=== PATIENT | female | born 1930 | race Caucasian/White ===

== ENCOUNTER 2017-07-02 13:32 | Emergency (ER) | payer OTHER ==
[~2017-07-02] VITALS: Ht 170.2 cm; Wt 55.0 kg
[~2017-07-02 13:32] MED LIST: ASPI81TA28 PO; CYAN100048 PO; DICY10CA12 PO; GARL400T4 PO; MULT-506 PO; NITR0.4S UT; PSYL0.524 PO; TPRSR/25 PO; TPRSR/50 PO; VALS320T PO
--- NOTE | 2017-07-02 16:02 | EMERGENCY ROOM VISIT NOTE ---
History Report prepared by Roxane: Glenroy Lang Under the Supervision of: Dr. Mandeep North M.D. First contact with patient: 15:56 Chief Complaint: HYPERTENSION Stated Complaint: HIGH BP, HEART PALPATATIONS, SENT BY DR MONTEJO History of Present Illness The patient is an 86 year old white female with a past medical history of AFIB, hypertension, and a pacemaker placement in October, who presents to the ED with a cc of worsening hypertension beginning a couple days ago. Positive heart racing , intermittent left sided neck and head "stinging". 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 The patient says that her blood pressure has been as high as in the 160s systolic, and was referred here by Dr. Montejo. She takes blood pressure medication, and has not had any changes to her medications recently. The patient does take Coumadin. She says that she had an artery study "a while ago". Source of History: patient, family Onset: A couple days ago Position: other (global - HTN) Symptom Intensity: 160s systolic Quality: other (hx of HTN) Timing: worsening Note: Associated symptoms: Heart racing, intermittent left sided neck and head "stinging". Review of Systems See HPI for pertinent positives and negatives. A total of ten systems were reviewed and were otherwise negative. Past Medical & Surgical Medical Problems: (1) Afib (2) HTN (hypertension) (3) Pacemaker Family History Family history omitted secondary to patient's advanced age. Social History Smoking Status: Never Smoker Drug Use: none Housing Status: lives with family Occupation Status: retired Current/Historical Medications Scheduled Cholecalciferol (Vitamin D 1000 Unit), 1,000 INTER.UNIT PO DAILY Fluticasone Propionate (Nasal) (Flonase Allergy Relief), 2 SPRAYS JOSE DAILY Metoprolol Succinate (Toprol Xl), 50 MG PO BID Multivitamin (Multivitamin), 1 TAB PO Q2D Nitroglycerin (Nitrostat), 0.4 MG UT PRN Psyllium (Metamucil), 1 DOSE PO HS Valsartan (Diovan), 80 MG PO DAILY Vitamin B Cmplx/Vitc/Folic Ac (Nephrocaps), 1 CAP PO DAILY Warfarin Sod (Jantoven), 3 MG PO 5XWK Warfarin Sodium (Warfarin Sodium), 2 MG PO MON&FRI Scheduled PRN Acetaminophen (Tylenol), 1,000 MG PO Q6 PRN for Pain or Fever Dicyclomine Hcl (Dicyclomine Hcl), 10 MG PO TID PRN for PRN Allergies Coded Allergies: Oxycodone (Verified Allergy, Severe, "RASH AND PEELING", 11/20/14) Alendronate (Verified Allergy, Mild, VOMITING, 11/20/14) Amantadine (Unverified Allergy, Unknown, N/V BROUT OUT IN BLISTERS, ) Benzonatate (Verified Allergy, Unknown, UNKNOWN, 11/20/14) Guaifenesin (Unverified Allergy, Unknown, RASH, 10/31/14) Morphine (Verified Allergy, Unknown, PATIENT UNSURE, 11/20/14) Nitrofurantoin (Unverified Allergy, Unknown, RASH, 10/31/14) Ondansetron (Verified Allergy, Unknown, RASH, 07/02/17) Sulfa Drugs (Unverified Allergy, Unknown, 10/31/14) Physical Exam Vital Signs Date Time Temp Pulse Resp B/P (MAP) Pulse Ox O2 Delivery O2 Flow Rate FiO2 07/02/17 19:17 36.5 65 18 154/69 95 07/02/17 18:32 65 18 07/02/17 18:31 172/71 07/02/17 18:02 64 07/02/17 18:02 60 28 07/02/17 17:57 60 22 07/02/17 17:51 157/77 07/02/17 13:38 36.5 63 18 168/72 95 Room Air Physical Exam GENERAL: Awake, alert, well-appearing, NAD HENT: Normocephalic, atraumatic. No reproducible discomfort with lateral motion of neck. EYES: Normal conjunctiva. Sclera non-icteric. NECK: Supple. No nuchal rigidity. FROM. No bruits heard over anterior neck. RESPIRATORY: CTAB, no rhonchi, wheezing, crackles CARDIAC: RRR, no MRG ABDOMEN: Soft, NTND, BS+ MSK: No chest wall TTP, no LE edema NEURO: CN 2-12 intact, 5/5 upper and lower extremity strength, no dysmetria, no drift, good finger to nose, no sensory deficits. SKIN: No rash or jaundice noted. Medical Decision & Procedures ER Provider Diagnostic Interpretation: X-ray: Per my interpretation, radiologist review. CHEST ONE VIEW PORTABLE HISTORY: Generalized abdominal pain. COMPARISON: None. FINDINGS: Left-sided single lead pacemaker. No focal lung consolidations to suggest pneumonia. No evidence for pulmonary edema. The heart is mildly enlarged. No pleural effusions. No pneumothorax. Mildly tortuous and partially calcified thoracic aorta. IMPRESSION: Mild cardiomegaly. Otherwise, no acute process within the chest. Electronically signed by: Manuelito Velazquez M.D. 07/02/2017 5:07 PM Dictated Date/Time: 07/02/2017 5:06 PM Laboratory Results 07/02/17 16:40 Red Blood Count 5.12, Mean Corpuscular Volume 92.0, Mean Corpuscular Hemoglobin 31.4, Mean Corpuscular Hemoglobin Concent 34.2, Mean Platelet Volume 10.7, Neutrophils (%) (Auto) 66.9, Lymphocytes (%) (Auto) 19.1, Monocytes (%) (Auto) 11.9, Eosinophils (%) (Auto) 1.2, Basophils (%) (Auto) 0.6, Neutrophils # (Auto ) 4.82, Lymphocytes # (Auto) 1.38, Monocytes # (Auto) 0.86, Eosinophils # (Auto ) 0.09, Basophils # (Auto) 0.04 07/02/17 16:40 Test 07/02/17 16:40 White Blood Count 7.21 K/uL (4.8-10.8) Red Blood Count 5.12 M/uL (4.2-5.4) Hemoglobin 16.1 g/dL (12.0-16.0) Hematocrit 47.1 % (37-47) Mean Corpuscular Volume 92.0 fL (80-100) Mean Corpuscular Hemoglobin 31.4 pg (25-34) Mean Corpuscular Hemoglobin Concent 34.2 g/dl (32-36) Platelet Count 156 K/uL (130-400) Mean Platelet Volume 10.7 fL (7.4-10.4) Neutrophils (%) (Auto) 66.9 % Lymphocytes (%) (Auto) 19.1 % Monocytes (%) (Auto) 11.9 % Eosinophils (%) (Auto) 1.2 % Basophils (%) (Auto) 0.6 % Neutrophils # (Auto) 4.82 K/uL (1.4-6.5) Lymphocytes # (Auto) 1.38 K/uL (1.2-3.4) Monocytes # (Auto) 0.86 K/uL (0.11-0.59) Eosinophils # (Auto) 0.09 K/uL (0-0.5) Basophils # (Auto) 0.04 K/uL (0-0.2) RDW Standard Deviation 52.2 fL (36.4-46.3) RDW Coefficient of Variation 15.5 % (11.5-14.5) Immature Granulocyte % (Auto) 0.3 % Immature Granulocyte # (Auto) 0.02 K/uL (0.00-0.02) Prothrombin Time 27.2 SECONDS (9.0-12.0) Prothromb Time International Ratio 2.6 (0.9-1.1) Activated Partial Thromboplast Time 36.3 SECONDS (21.0-31.0) Partial Thromboplastin Ratio 1.4 Anion Gap 6.0 mmol/L (3-11) Est Creatinine Clear Calc Drug Dose 45.0 ml/min Estimated GFR () 79.8 Estimated GFR (Non- 68.8 BUN/Creatinine Ratio 32.1 (10-20) Calcium Level 10.2 mg/dl (8.5-10.1) Laboratory results reviewed by me ECG Indication: palpitations Rate (beats per minute): 60 Rhythm: other (V-paced rhythm) Findings: LBBB, other (wide QRS, normal axis) Comparison ECG Date: no notable prior Change: Patient's electrocardiogram interpreted by me. ED Course 1610: The patient was evaluated in room C2B. A complete history and physical exam was performed. 174: I reevaluated the patient and she is resting comfortably. Discussed results and discharge instructions: she verbalized understanding and agreement. The patient is ready for discharge. 1802: I discussed the patient with Dr. Brian Long cardiology - he reviewed the clinic notes and primary care referred the patient here. Medical Decision The patient is an 86 year old white female with a past medical history of hypertension, a pacemaker placement in October, who presents to the ED with a cc of worsening hypertension beginning a couple days ago. Positive heart racing, intermittent left sided neck and head "stinging". Differential diagnosis: Etiologies such as benign hypertension, hypertensive emergency, cardiovascular pathology, pheochromocytoma, electrolyte abnormality, renal disease, endorgan damage, as well as others were entertained. Patient was seen and evaluated the bedside. Patient states that she been referred here for some hypertension. Patient did complain of some which she described as some left sided stinging of her head. Patient she is had a bad artery in the past. On exam the patient has a nonfocal neurologic neurologic exam. No carotid bruits noted patient is very well-appearing. Patient is not hypertensive or she has any sort of headache or neuro deficits I do not believe she needs acute intervention at this time. She did have an EKG which showed intermittently V paced rhythm does not appear ischemic. No priors to compare to. Patient's blood work fairly unremarkable. Patient is to suitable for outpatient follow-up and treatment at this time. I discussed with the patient that if she does want to change her antihypertensive medication she should discuss it with her PCP. I did discuss the patient with the on-call rigger up. The on-call rigger up did review the clinical notes which stated that her primary care physician had sent a message to her rigger up. Furthermore, the patient had complained of apparently some chest stinging. I believe that this is more related to this intermittent neck and head stinging. The patient did have a POC troponin that was drawn and was negative. I do not believe she has ACS. Furthermore, I did state that if she has not had a workup for possible carotid stenosis that it can be done as an outpatient at this time. She was also told to follow with her PCP for this as well. Patient was given strict follow-up, discharge, and return precautions. All questions were answered. Patient was deemed suitable for outpatient follow-up at this time. Patient agreed with the plan of care and was safely discharged home. The chart was completed utilizing [employer] Speech voice recognition software. Grammatical errors, random word insertions, pronoun errors, and incomplete sentences are an occasional consequence of this system due to software limitations, ambient noise, and hardware issues. Any formal questions or concerns about the content, text, or information contained within the body of this dictation should be directly addressed to the physician for clarification. Medication Reconcilliation Current Medication List: was personally reviewed by me Blood Pressure Screening Patient's blood pressure: Elevated blood pressure Blood pressure disposition: Referred to PCP Consults Time Called: 1800 Consulting Physician: Dr. Brian Long cardiology Returned Call: 1803 I discussed the patient with Dr. Brian Long cardiology - he reviewed the clinic notes and primary care referred the patient here. Impression Primary Impression: HTN (hypertension) Additional Impression: Pacemaker Scribe Attestation The scribe's documentation has been prepared under my direction and personally reviewed by me in its entirety. I confirm that the note above accurately reflects all work, treatment, procedures, and medical decision making performed by me. Departure Information Dispostion Home / Self-Care Referrals Zoë Cisneros D.O. (PCP) Patient Instructions Hypertension [place], My [facility] Additional Instructions Please return to the emergency department if you have worsening or recurrent symptoms not amenable to at-home treatment. Please call for a follow-up appointment with her primary care physician. Please take your medications as prescribed. If you have other concerns and/or complaints please feel free to also call your primary care physician's office or return the ED for further evaluation, management, and treatment. You were found to have an elevated blood pressure today (>120 sytolic or >90 diastolic). Per medicare guidelines, you need to follow up with this blood pressure screening with your Primary Care Physician (PCP). For a new PCP call [phone]. Please follow-up with your primary care physician in order to discuss lifestyle modifications and/or medication management. Also discuss further imaging of the neck as needed with her primary care physician. Also follow-up with your rigger up as needed. Take your medications as prescribed. You have been examined and treated today on an emergency basis only. This is not a substitute for, or an effort to provide, complete comprehensive medical care. It is impossible to recognize and treat all injuries or illnesses in a single emergency department visit. It is therefore important that you follow up closely with [facility], your PCP, and/or your specialist(s). Call as soon as possible for an appointment. Thank you for your time and consideration. I look forward to speaking with you again soon. Please don't hesitate to call us if you have any questions. Problem Qualifiers Primary Impression: HTN (hypertension) Hypertension type: unspecified Qualified Codes: I10 - Essential (primary) hypertension
[2017-07-02] MEDS ORDERED: WARF-283 PO (16:40)
[2017-07-02] MEDS ORDERED: ACET-1256 PO (16:40)
[2017-07-02] MEDS ORDERED: CHOL100027 PO (16:40)
[2017-07-02] MEDS ORDERED: METO-217 PO (16:40)
[2017-07-02] MEDS ORDERED: WARF4TAB8 PO (16:40)
[2017-07-02] MEDS ORDERED: B-CO1CAP17 PO (16:40)
[2017-07-02] MEDS ORDERED: DVN80 PO (16:40)
[2017-07-02] MEDS ORDERED: FLUT0.15 NAE (16:40)
[2017-07-02 16:52] LABS: BASO % 0.6 %; BASO ABS # 0.04 K/uL (0-0.2); EOS % 1.2 %; EOS ABS # 0.09 K/uL (0-0.5); HEMATOCRIT 47.1 % (37-47); HEMOGLOBIN 16.1 g/dL (12.0-16.0); IG# 0.02 K/uL (0.00-0.02); LYMPH % 19.1 %; LYMPH ABS # 1.38 K/uL (1.2-3.4); MEAN CORPUSCULAR HEMOGLOBIN 31.4 pg (25-34); MEAN CORPUSCULAR HGB CONC 34.2 g/dl (32-36); MEAN PLATELET VOLUME 10.7 fL (7.4-10.4); MONO % 11.9 %; MONO ABS # 0.86 K/uL (0.11-0.59); NEUT % 66.9 %; NEUT ABS # 4.82 K/uL (1.4-6.5); PLATELET COUNT 156 K/uL (130-400); RED CELL DISTRIBUTION WIDTH CV 15.5 % (11.5-14.5); RED CELL DISTRIBUTION WIDTH SD 52.2 fL (36.4-46.3); WHITE BLOOD COUNT 7.21 K/uL (4.8-10.8)
[2017-07-02 17:05] LABS: INR 2.6 (0.9-1.1); PTT PATIENT 36.3 SECONDS (21.0-31.0)
--- NOTE | 2017-07-02 17:08 | DIAGNOSTIC IMAGING REPORT ---
CHEST ONE VIEW PORTABLE HISTORY: Generalized abdominal pain. COMPARISON: None. FINDINGS: Left-sided single lead pacemaker. No focal lung consolidations to suggest pneumonia. No evidence for pulmonary edema. The heart is mildly enlarged. No pleural effusions. No pneumothorax. Mildly tortuous and partially calcified thoracic aorta. IMPRESSION: Mild cardiomegaly. Otherwise, no acute process within the chest. Electronically signed by: Manuelito Velazquez M.D. 07/02/2017 5:07 PM Dictated Date/Time: 07/02/2017 5:06 PM
[2017-07-02 17:09] LABS: CALCIUM 10.2 mg/dl (8.5-10.1); CREATININE 0.78 mg/dl (0.60-1.20); POTASSIUM 4.4 mmol/L (3.5-5.1)
[2017-07-02 19:17] VITALS: BP 154/69; PULSE 65; TEMP 36.5; O2SAT 95
[2017-07-02 21:08] VITALS: Ht 170.2 cm; Wt 55.0 kg
== END 2017-07-02 19:18 | disposition home or self-care (01) ==
LOC: C.EDB 13:34 → C.EDC 19:18
DX: I10 Essential (primary) hypertension (principal); I48.91 Unspecified atrial fibrillation; Z95.0 Presence of cardiac pacemaker; Z79.01 Long term (current) use of anticoagulants; Z79.899 Other long term (current) drug therapy